=== PATIENT | female | born 1955 | race Caucasian/White ===

== ENCOUNTER 2016-12-30 20:35 | Emergency (ER) | payer MEDICAID, OTHER, SELFPAY ==
[~2016-12-30] VITALS: Ht 154.9 cm; Wt 44.5 kg
[2016-12-30] MEDS ORDERED: MESA50SU PR (20:54)
[2016-12-30] MEDS ORDERED: TYLE325C PO (20:54)
[2016-12-30] MEDS ORDERED: MIRA33504 PO (20:55)
[2016-12-30] MEDS ORDERED: ONDANSETRON 4MG/2ML VIAL (J2405) IV ONE (22:15)
[2016-12-30] MEDS: MORPHINE 4 MG/ML 1ML SYRINGE IV PRN (22:47)
[2016-12-30 22:48] LABS: BASO # 0.1 K/mm3 (0.0-0.2); BASO % 0.9 % (0.0-1.0); EOS # 0.1 K/mm3 (0.0-0.50); EOS % 1.2 % (0.0-3.0); LARGE UNSTAINED CELL # 0.2 K/mm3 (0.0-0.4); LARGE UNSTAINED CELL % 2.3 % (0.0-4.0); LYMPH # 2.7 K/mm3 (1.5-4.5); LYMPH % 34.4 % (24.0-44.0); MEAN CORPUSCULAR HEMOGLOBIN 30.5 pg (27.0-33.0); MEAN CORPUSCULAR HGB CONC 34.5 g/dl (32.0-36.5); MEAN CORPUSCULAR VOLUME 88.4 fl (80.0-96.0); MONO # 0.7 K/mm3 (0.0-0.8); MONO % 9.6 % (0.0-5.0); NEUTROPHILS # 3.8 K/mm3 (1.8-7.7); NEUTROPHILS % 51.5 % (36.0-66.0); PLATELET COUNT, AUTOMATED 297 k/mm3 (150-450); RED CELL DISTRIBUTION WIDTH 12.6 % (11.5-14.5); WHITE BLOOD COUNT 7.3 K/mm3 (4.0-10.0)
[2016-12-30] MEDS ORDERED: ISOVUE-370 76% 100ML VIAL (Q9967) As Ordered ONE (23:11)
[2016-12-30 23:12] LABS: ALBUMIN 4.7 GM/DL (3.2-5.2); ALBUMIN/GLOBULIN RATIO 1.52 (1.00-1.93); ALKALINE PHOSPHATASE 67 U/L (45-117); ALT/SGPT 22 U/L (12-78); ANION GAP 9 MEQ/L (8-16); AST/SGOT 19 U/L (15-37); BILIRUBIN,DIRECT 0.2 MG/DL (0.0-0.2); BILIRUBIN,TOTAL 0.6 MG/DL (0.2-1.0); BLOOD UREA NITROGEN 10 MG/DL (7-18); CALCIUM LEVEL 9.7 MG/DL (8.8-10.2); CARBON DIOXIDE LEVEL 29 MEQ/L (21-32); CHLORIDE LEVEL 101 MEQ/L (98-107); CREATININE FOR GFR 0.65 MG/DL (0.55-1.02); GLOMERULAR FILTRATION RATE > 60.0 (>45); GLUCOSE, FASTING 99 MG/DL (80-110); POTASSIUM SERUM 3.5 MEQ/L (3.5-5.1); SODIUM LEVEL 139 MEQ/L (136-145); TOTAL PROTEIN 7.8 GM/DL (6.4-8.2)
--- NOTE | 2016-12-31 00:20 | REPUSA ---
CLINICAL HISTORY: Dyspnea, exclude PE. TECHNIQUE: Multiple incremental axial, coronal and oblique images are obtained from the thoracic inle t to the upper abdomen. Intravenous contrast material was administered as per pulmonary embolism prot ocol. COMMENTS: Bronchiectatic changes in the lingula and right middle lobe. There is bilateral peribronchial interstitial thickening suggestive of bronchitis. Nodular groundglass densities of the left elbow. There is bilateral peribronchial interstitial thickening suggestive of bronchitis. There is excellent opacification of pulmonary arterial system without evidence for pulmonary embolism . Aorta is of normal caliber without evidence for dissection or aneurysm. There is no evidence of pleural or parenchymal mass. There are no pleural effusions. There is no evid ence of hilar or mediastinal lymphadenopathy. The heart and great vessels are within normal limits. Images of the upper abdomen demonstrate no evidence of adrenal mass. The bony structures are free of lytic or blastic lesions. IMPRESSION: No evidence for pulmonary embolism. Bronchitis. Nodular groundglass densities in the left lower lobe. Minimal groundglass densities in the right lower lobe. Bronchiectatic changes in the lingula and the right middle lobe. Thank you for your kind referral of this patient.
--- NOTE | 2016-12-31 00:20 | REPUSA ---
CLINICAL HISTORY: Abdominal pain. TECHNIQUE: Multiple axial and coronal CT images were obtained through the abdomen and pelvis after the administr ation of IV contrast material. Multiplanar reconstructed (MPR) images are also available in coronal a nd sagittal planes. No oral contrast was given. No prior studies are available for comparison. COMMENTS: The visualized lung bases are clear. There is no evidence of pleural effusion. Scattered simple hepat ic cysts. 1.3 cm hepatic hemangioma. The remaining liver is homogeneous without mass or defect. There is mild biliary ductal dilatation. The spleen is homogeneous without mass or defect. The gallbladder is within normal limits. The pancreas is of normal contour and attenuation characteristics. There is no evidence of adrenal mass. The kidneys are normal in size, shape and configuration. There is no evidence of renal or ureteral st one. There is no evidence of renal mass. Normal nephrograms and contrast excretion are identified pete aterally. There is no hydronephrosis or hydroureter. There is no evidence for appendicitis. There is no bowel obstruction or inflammation. There is no evidence of intrinsic or extrinsic bladder mass. Fluid-filled bowels. There is no evidence of ascites or adenopathy. There is no evidence of AAA. The bony structures are free of lytic or blastic lesions. IMPRESSION: Fluid-filled bowel suspicious for enteritis. Distended bladder. Hepatic hemangioma. Scattered simple hepatic cysts. Mild biliary ductal dilatation. Thank you for your kind referral of this patient.
[2016-12-31] MEDS: MORPHINE 4 MG/ML 1ML SYRINGE IV PRN (00:23)
[2016-12-31] MEDS ORDERED: NAPR500T PO (01:08)
[2016-12-31] MEDS ORDERED: NORCOTAB PO (01:08)
[2016-12-31] MEDS ORDERED: NAPROXEN 250 MG TAB PO ONE (01:15)
[2016-12-31] MEDS ORDERED: NORCO 5/325MG TABLET (BULK FOR ED) PO ONE (01:15)
[2016-12-31 01:30] VITALS: BP 113/65
--- NOTE | 2016-12-31 09:48 | ED PDOC ---
Post-Departure Follow-Up certified letter sent Urmila Blanc MD Dec 31, 2016 09:48
[2017-01-01] MEDS ORDERED: ASPI81TA18 (18:59)
[2017-01-01] MEDS ORDERED: ULTR50TA8 PO (19:46)
[2017-01-01] MEDS ORDERED: CITRSOL8 PO (19:46)
== END 2016-12-31 01:31 | disposition home or self-care (01) ==
LOC: M ED 20:35 → EDBD 20:35 → M ED 12-31 01:31
DX: M54.5 Low back pain (principal); G89.29 Other chronic pain; R91.8 Other nonspecific abnormal finding of lung field; R93.2 Abnormal findings on diagnostic imaging of liver and biliary tract; Z79.82 Long term (current) use of aspirin; Z79.899 Other long term (current) drug therapy
CPT/HCPCS: 71275; 74174; 80048; 80076; 83690; 85025; 86850; 86900; 86901; 93041; 96374; 96375; 99284; J2405; Q9967

== ENCOUNTER 2017-01-01 18:47 | Emergency (ER) | payer MEDICAID, OTHER ==
[~2017-01-01] VITALS: Ht 154.9 cm; Wt 45.5 kg
[~2017-01-01 18:47] MED LIST: MESA50SU PR; MIRA33504 PO; NAPR500T PO; NORCOTAB PO; TYLE325C PO
[2017-01-01 18:49] VITALS: BP 133/79
[2017-01-01] MEDS ORDERED: ASPI81TA18 (18:59)
[2017-01-01] MEDS ORDERED: ULTR50TA8 PO (19:46)
[2017-01-01] MEDS ORDERED: CITRSOL8 PO (19:46)
== END 2017-01-01 20:05 | disposition home or self-care (01) ==
LOC: M ED 18:47
DX: G89.29 Other chronic pain (principal); M54.5 Low back pain; R10.9 Unspecified abdominal pain; K59.00 Constipation, unspecified; T40.2X5A Adverse effect of other opioids, initial encounter; Y92.9 Unspecified place or not applicable; Y93.9 Activity, unspecified; Z79.82 Long term (current) use of aspirin; Z79.899 Other long term (current) drug therapy